=== PATIENT | female | born 1960 | race American Indian/Alaskan Native ===

== ENCOUNTER 2017-12-29 09:06 | Outpatient (CLI) | payer BC ==
--- NOTE | 2017-12-29 16:04 | Mammography Report ---
BILATERAL DIGITAL SCREENING MAMMOGRAM with CAD : 12/29/17 09:06:00 CLINICAL: Routine screening. COMPARISON:None available. FINDINGS: The breasts are heterogeneously dense, which may obscure small masses. No mass, architectural distortion or suspicious calcifications. IMPRESSION: No mammographic evidence of malignancy. BI-RADS CATEGORY: 2 -- Benign RECOMMENDATION: Routine mammographic screening in one year. COMMENT: Patient follow-up letters are generated by our [employer] application.
== END 2017-12-29 09:07 | disposition home or self-care (01) ==
LOC: SPVWC 09:06
PROVIDERS: ATTEND Internal Medicine
DX: Z12.31 Encounter for screening mammogram for malignant neoplasm of breast (principal)
CPT/HCPCS: 77067

== ENCOUNTER 2018-06-12 08:01 | Outpatient (CLI) | payer BC ==
[2018-06-12 08:24] LABS: Basophils % (Auto) 0.2 % (0.0-1.8); Eosinophils % (Auto) 0.3 % (0.0-4.3); Hematocrit 40.1 % (30.3-42.9); Hemoglobin 13.3 gm/dl (10.1-14.3); Lymphocytes % (Auto) 25.4 % (13.4-35.0); Mean Corpuscular HGB Conc 33 % (30-34); Mean Corpuscular Hemoglobin 28 pg (28-32); Mean Corpuscular Volume 86 fl (79-97); Monocytes # (Auto) 0.5 K/mm3 (0.0-0.8); Monocytes % (Auto) 6.5 % (0.0-7.3); Platelet Count 130 K/mm3 (140-440); Red Blood Count 4.68 M/mm3 (3.65-5.03); Red Cell Distribution Width 14.3 % (13.2-15.2)
[2018-06-12 08:42] LABS: Alanine Aminotransferase 8 units/L (7-56); BUN/Creatinine Ratio 22; Blood Urea Nitrogen 13 mg/dL (7-17); Calcium 9.2 mg/dL (8.4-10.2); Chol/HDL Ratio 2.65 %; HDL Cholesterol 66 mg/dL (40-59); Hemolysis Index 0; LDL Cholesterol,Direct 114 mg/dL (50-130)
[2018-06-12 08:49] LABS: Free T4 (Free Thyroxine) 1.29 ng/dL (0.76-1.46)
== END 2018-06-12 08:02 | disposition home or self-care (01) ==
LOC: LAB 08:01
PROVIDERS: ATTEND Internal Medicine
DX: I10 Essential (primary) hypertension (principal); M96.1 Postlaminectomy syndrome, not elsewhere classified; R53.83 Other fatigue; E55.9 Vitamin D deficiency, unspecified; Z79.899 Other long term (current) drug therapy
CPT/HCPCS: 36415; 80053; 80061; 82306; 84439; 84443; 85025

== ENCOUNTER 2019-01-21 08:13 | Outpatient (CLI) | payer BC ==
[2019-01-21 08:32] LABS: Hematocrit 39.5 % (30.3-42.9); Hemoglobin 13.2 gm/dl (10.1-14.3); Mean Corpuscular HGB Conc 34 % (30-34); Mean Corpuscular Volume 86 fl (79-97); Platelet Count 145 K/mm3 (140-440); Red Cell Distribution Width 14.7 % (13.2-15.2)
[2019-01-21 08:38] LABS: Bacteria,Urine 2+ /HPF (Negative); Bilirubin,Urine NEG (Negative); Blood,Urine NEG (Negative); Color,Urine Yellow (Yellow); Mucus,Urine 1+ /HPF; Protein,Urine <15 mg/dL mg/dL (Negative); Urobilinogen,Urine < 2.0 mg/dL (<2.0)
[2019-01-21 09:00] LABS: Alanine Aminotransferase 9 units/L (7-56); BUN/Creatinine Ratio 16; Blood Urea Nitrogen 11 mg/dL (7-17); Calcium 9.2 mg/dL (8.4-10.2); Hemolysis Index 3; LDL Cholesterol,Direct 125 mg/dL (50-130)
[2019-01-21 09:11] LABS: HDL Cholesterol 63 mg/dL (40-59)
[2019-01-21 09:53] LABS: Chol/HDL Ratio 2.85 %
== END 2019-01-21 08:14 | disposition home or self-care (01) ==
LOC: LAB 08:13
PROVIDERS: ATTEND Internal Medicine
DX: I10 Essential (primary) hypertension (principal); E78.5 Hyperlipidemia, unspecified; R53.83 Other fatigue; E55.9 Vitamin D deficiency, unspecified; R35.8 Other polyuria; Z79.899 Other long term (current) drug therapy
CPT/HCPCS: 36415; 80053; 80061; 81001; 82306; 84443; 85027

== ENCOUNTER 2019-08-12 09:01 | Outpatient (CLI) | payer BC ==
[2019-08-12 09:15] LABS: Hematocrit 39.5 % (30.3-42.9); Hemoglobin 13.2 gm/dl (10.1-14.3); Mean Corpuscular HGB Conc 33 % (30-34); Mean Corpuscular Volume 86 fl (79-97); Platelet Count 159 K/mm3 (140-440); Red Cell Distribution Width 14.3 % (13.2-15.2)
[2019-08-12 09:42] LABS: Alanine Aminotransferase 10 units/L (7-56); Albumin 3.9 g/dL (3.9-5); BUN/Creatinine Ratio 15; Blood Urea Nitrogen 12 mg/dL (7-17); Hemolysis Index 12
[2019-08-12 09:58] LABS: Erythrocyte Sedimentation Rate 32 mm/Hr (0-20)
--- NOTE | 2019-08-12 10:02 | XRay Report ---
RIGHT FOOT, 3 VIEWS INDICATION: L08.9 LOCAL INFECTION OF THE SKIN SUBCUTANEOUS TISSUE. COMPARISON: None. IMPRESSION: Mild nonspecific soft tissue edema or swelling is suspected. No evidence for soft tissue gas or radiopaque foreign body. The bony structures are intact. No fracture or bony destruction is appreciated. Mild osteoarthritic changes are noted at the first metatarsophalangeal joint. Moderate p lantar spur. Signer Name: Edu Solano Jr, MD Signed: 08/12/2019 9:58 AM Workstation Name: [id number]
== END 2019-08-12 09:02 | disposition home or self-care (01) ==
LOC: XRAY 09:01
PROVIDERS: ATTEND Podiatrist Foot & Ankle Surgery
DX: M19.072 Primary osteoarthritis, left ankle and foot (principal); L08.9 Local infection of the skin and subcutaneous tissue, unspecified; M77.8 Other enthesopathies, not elsewhere classified
CPT/HCPCS: 36415; 80053; 84550; 85027; 85652

== ENCOUNTER 2019-11-05 09:10 | Outpatient (CLI) | payer BC ==
--- NOTE | 2019-11-05 10:13 | XRay Report ---
RIGHT FOOT 3 VIEWS INDICATION: L08.9 Local infection of the skin and subcutaneous tissue, unspec. COMPARISON: 08/12/2019 FINDINGS: Bandaging material limits anatomic detail. Accounting for this, no acute skeletal abnormality is seen . There appears to be mild plantar soft tissue swelling. No foreign bodies or soft tissue gas. Degene rative and enthesopathic changes are again noted. IMPRESSION: 1. No limitation related to overlying bandaging, no acute skeletal abnormality. No soft tissue gas is appreciated. No foreign bodies. Signer Name: Klaus De Jesus MD Signed: 11/05/2019 10:08 AM Workstation Name: [id number]
== END 2019-11-05 09:11 | disposition home or self-care (01) ==
LOC: XRAY 09:10
PROVIDERS: ATTEND Podiatrist Foot & Ankle Surgery
DX: M19.071 Primary osteoarthritis, right ankle and foot (principal); M76.891 Other specified enthesopathies of right lower limb, excluding foot; L08.9 Local infection of the skin and subcutaneous tissue, unspecified

== ENCOUNTER 2019-11-11 09:42 | Outpatient (CLI) | payer BC ==
--- NOTE | 2019-11-11 11:32 | Magnetic Resonance Report ---
MR LOWER EXTREMITY JOINT WITHOUT CONTRAST, RIGHT HISTORY: Infection right fifth metatarsal head in right foot TECHNIQUE: Multisequence, multiplanar MRI without contrast through the distal right foot. COMPARISON: Right foot films dated 11/05/2019 FINDINGS: There is mild nonspecific subcutaneous edema on the dorsum of the foot distally which could represent a mild cellulitis. There is no evidence for abscess or soft tissue gas. The bone marrow signal throu ghout the visualized right foot is within normal limits. No bone marrow edema, T1 changes or periosti tis is identified to suggest acute osteomyelitis. No erosive joint pathology is identified. Mild osteoarthritic changes are noted in the midfoot and fi rst metatarsophalangeal joint. The visualized musculotendinous structures are unremarkable. Most of the hindfoot is not included. IMPRESSION: No evidence for osteomyelitis. Mild nonspecific subcutaneous edema is identified which could represen t a cellulitis. No abscess. Signer Name: Edu Solano Jr, MD Signed: 11/11/2019 11:28 AM Workstation Name: [id number]
== END 2019-11-11 09:43 | disposition home or self-care (01) ==
LOC: SPVIMAG 09:42
PROVIDERS: ATTEND Podiatrist Foot & Ankle Surgery
DX: M19.071 Primary osteoarthritis, right ankle and foot (principal); L08.9 Local infection of the skin and subcutaneous tissue, unspecified
CPT/HCPCS: 73721

== ENCOUNTER 2020-07-08 08:30 | Outpatient (CLI) | payer BC ==
--- NOTE | 2020-07-08 10:22 | Mammography Report ---
BILATERAL DIGITAL SCREENING MAMMOGRAM WITH CAD HISTORY: SCREENING MAMMOGRAM TECHNIQUE: Routine digital mammographic imaging performed. This examination was interpreted with felicia mcdermott benefit of Computer-aided Detection analysis. COMPARISON: 03/08/2019, 12/29/2017. FINDINGS: Breast Density: scattered fibroglandular appearance of the breast tissue. Digital CC and MLO views demonstrate no mammographic evidence of malignancy. Stable benign-appearing right upper outer breast coarse calcifications. IMPRESSION: No mammographic evidence of malignancy. If the clinical examination remains stable, recommend bilate ral mammogram in approximately one year. BIRADS 2: Benign Finding(s). FURTHER INFORMATION: According to the [employer], yearly mammograms are recommend ed starting at age 40 and continuing as long as a woman is in good health. Clinical Breast Exams shou ld be part of a periodic health exam-about every 3 years for women in their 20s and 30s and every yea r for women 40 and over. Breast self exam is an option for women starting in their 20s. Any breast ch gustavo noted on a breast self exam should be reported promptly to the patient's healthcare provider. Br east MRI is recommended for women with an approximately 20-25% or greater lifetime risk of breast can cer, including women with a strong family history of breast or ovarian cancer and women who have been treated for Hodgkin's disease. A negative Mammography report should not discourage follow up or biopsy of a clinically significant f inding and/or abnormality. Dense breast tissue may obscure small neoplasms. The patient will be entered into a reminder system with a target due date for the next screening mamm ogram. Signer Name: Matthew Darby MD Signed: 07/08/2020 10:18 AM Workstation Name: [id number]
== END 2020-07-08 08:31 | disposition home or self-care (01) ==
LOC: SPVWC 08:30
PROVIDERS: ATTEND Internal Medicine
DX: Z12.31 Encounter for screening mammogram for malignant neoplasm of breast (principal)
CPT/HCPCS: 77067

== ENCOUNTER 2020-09-04 08:35 | Outpatient (CLI) | payer BC ==
--- NOTE | 2020-09-04 09:24 | XRay Report ---
RIGHT FOOT 3 VIEW(S) INDICATION / CLINICAL INFORMATION: INFECTION RT METATARSAL COMPARISON: 11/05/2019 FINDINGS: BONES / JOINT(S): No acute fracture or aggressive cortical destruction. There is diffuse osteopenia. Mild scattered osteoarthritis of the first MTP and scattered IP joints. Lisfranc alignment is preserv ed. SOFT TISSUES: Reported soft tissue wound involving the lateral right forefoot is not well seen by rad iograph. There is no soft tissue gas or radiopaque foreign body. ADDITIONAL FINDINGS: None. IMPRESSION: No acute osseous findings. No radiographic evidence of osteomyelitis. Signer Name: Ross Odom MD Signed: 09/04/2020 9:19 AM Workstation Name: [id number]
[2020-09-04 09:42] LABS: Basophils % (Auto) 0.3 % (0.0-1.8); Eosinophils % (Auto) 0.5 % (0.0-4.3); Hematocrit 37.1 % (30.3-42.9); Hemoglobin 12.4 gm/dl (10.1-14.3); Lymphocytes % (Auto) 28.7 % (13.4-35.0); Mean Corpuscular HGB Conc 34 % (30-34); Mean Corpuscular Volume 87 fl (79-97); Monocytes # (Auto) 0.4 K/mm3 (0.0-0.8); Monocytes % (Auto) 6.2 % (0.0-7.3); Platelet Count 153 K/mm3 (140-440); Red Blood Count 4.26 M/mm3 (3.65-5.03); Red Cell Distribution Width 14.1 % (13.2-15.2)
[2020-09-04 10:15] LABS: Erythrocyte Sedimentation Rate 42 mm/Hr (0-20)
[2020-09-04 10:16] LABS: Alanine Aminotransferase 9 units/L (7-56); Albumin 3.9 g/dL (3.9-5); BUN/Creatinine Ratio 17; Blood Urea Nitrogen 12 mg/dL (7-17); Calcium 9.1 mg/dL (8.4-10.2); Chol/HDL Ratio 3.15 %; HDL Cholesterol 57 mg/dL (40-59); Hemolysis Index 1; LDL Cholesterol,Direct 120 mg/dL (50-130); Uric Acid 6.1 mg/dL (3.5-7.6)
[2020-09-07 13:20] LABS: Vitamin D, 25-OH, D2 <4 ng/mL
== END 2020-09-04 08:36 | disposition home or self-care (01) ==
LOC: LAB 08:35
PROVIDERS: ATTEND Internal Medicine
DX: M19.071 Primary osteoarthritis, right ankle and foot (principal); L08.9 Local infection of the skin and subcutaneous tissue, unspecified; I10 Essential (primary) hypertension; E78.5 Hyperlipidemia, unspecified; E07.9 Disorder of thyroid, unspecified; E55.9 Vitamin D deficiency, unspecified; R53.83 Other fatigue; Z79.899 Other long term (current) drug therapy
CPT/HCPCS: 36415; 80053; 80061; 82306; 84443; 84550; 85025; 85652

== ENCOUNTER 2020-11-27 09:33 | Outpatient (CLI) | payer BC ==
--- NOTE | 2020-11-27 13:03 | Magnetic Resonance Report ---
MR LE joint RT wo con INDICATION / CLINICAL INFORMATION: MAIN. TECHNIQUE: Multiplanar, multisequence MR images were obtained. COMPARISON: None available. FINDINGS: Mild edema is seen in the fourth toe without corresponding low T1 signal. No other abnormal marrow si gnal is seen. No large fluid collection is identified. No soft tissue mass is present. Visualized ten dons are normal. IMPRESSION: Mild edema in the fourth toe on T2-weighted images without corresponding low T1 signal. This is a non specific finding. Presence of osteomyelitis is doubtful on this exam Signer Name: Mickey Chance MD FACThai Signed: 11/27/2020 12:59 PM Workstation Name: [id number]
== END 2020-11-27 09:34 | disposition home or self-care (01) ==
LOC: MRI 09:33
PROVIDERS: ATTEND Podiatrist Foot & Ankle Surgery
DX: L08.9 Local infection of the skin and subcutaneous tissue, unspecified (principal)
CPT/HCPCS: 73721

== ENCOUNTER 2020-12-23 12:41 | Outpatient (CLI) | payer BC ==
[2020-12-23 13:02] LABS: Hematocrit 38.1 % (30.3-42.9); Hemoglobin 13.2 gm/dl (10.1-14.3); Mean Corpuscular HGB Conc 35 % (30-34); Mean Corpuscular Volume 86 fl (79-97); Platelet Count 140 K/mm3 (140-440); Red Blood Count 4.45 M/mm3 (3.65-5.03); Red Cell Distribution Width 15.6 % (13.2-15.2)
[2020-12-23 13:26] LABS: Alanine Aminotransferase 13 units/L (7-56); Albumin 4.1 g/dL (3.9-5); BUN/Creatinine Ratio 21; Blood Urea Nitrogen 15 mg/dL (7-17); Calcium 9.2 mg/dL (8.4-10.2); Chol/HDL Ratio 2.95 %; HDL Cholesterol 68 mg/dL (40-59); Hemolysis Index 5; LDL Cholesterol,Direct 139 mg/dL (50-130)
== END 2020-12-23 12:42 | disposition home or self-care (01) ==
LOC: LAB 12:41
PROVIDERS: ATTEND Internal Medicine
DX: Z00.00 Encounter for general adult medical examination without abnormal findings (principal)
CPT/HCPCS: 36415; 80053; 80061; 83036; 84443; 85027

== ENCOUNTER 2021-01-19 05:58 | Day surgery (SDC) | payer BC ==
[2021-01-19] MEDS ORDERED: ceFAZolin/Water 2 GM/20 ML 2 GM/20 ML SYRINGE IV ONE (06:34)
[2021-01-19] MEDS ORDERED: LACTATED RINGERS 1,000 ML ONE (06:35)
[2021-01-19] MEDS ORDERED: dexAMETHasone 4 MG/ML VIAL ONE (06:44)
[2021-01-19] MEDS ORDERED: BACITRACIN ZINC OINT 28.4 GM TP ONE (06:44)
[2021-01-19] MEDS ORDERED: LIDOCAINE 1%/EPINEPHRINE 1:100,000 VIAL (20 ML) INFILTRATI ONE (06:44)
[2021-01-19] MEDS ORDERED: BUPIVACAINE/PF (0.25%) 2.5 MG/ML 30 ML VIAL INFILTRATI ONE (06:44)
--- NOTE | 2021-01-19 06:44 | Anesthesia Consultation ---
Anesthesia Consult and Med Hx Date of service: 01/19/21 - Airway Anesthetic Teeth Evaluation: Good ROM Head & Neck: Adequate Mental/Hyoid Distance: Adequate Mallampati Class: Class II Intubation Access Assessment: Good - Pulmonary Exam CTA: Yes - Cardiac Exam Cardiac Exam: RRR - Pre-Operative Health Status ASA Pre-Surgery Classification: ASA2 Proposed Anesthetic Plan: MAC - Pulmonary Hx Smoking: Yes (Former) - Cardiovascular System Hx Hypertension: Yes - Central Nervous System Hx Psychiatric Problems: No - Hematic Hx Sickle Cell Disease: Yes (Trait only) - Other Systems Hx Alcohol Use: Yes (Occas) Hx Cancer: No
[2021-01-19] MEDS ORDERED: LACTATED RINGERS 1,000 ML IV SCH (06:45)
[2021-01-19] MEDS ORDERED: LIDOCAINE-MPF (1%) 10 MG/1 ML VIAL 5 ML ONE (06:45)
--- NOTE | 2021-01-19 06:45 | Anesthesia Day of Surgery ---
Anesthesia Day of Surgery - Day of Surgery Patient Examined: Yes Patient H&P Reviewed: Yes Patient is NPO: Yes Beta Blockers: Yes
[2021-01-19] MEDS ORDERED: ceFAZolin/STERILE WATER 2 GM/20 ML SYRINGE IV NR (07:00)
[2021-01-19] MEDS ORDERED: MIDAZOLAM 2 MG/2 ML INJ IV NR (07:00)
[2021-01-19] MEDS ORDERED: GENTAMICIN 40 MG/ML VIAL 2 ML ONE (07:02)
[2021-01-19] MEDS ORDERED: propofoL 200 MG/20 ML VIAL IV ONE (07:12)
[2021-01-19] MEDS ORDERED: ONDANSETRON 4 MG/2 ML INJ IV PRN (07:19)
[2021-01-19] MEDS ORDERED: HYDROmorphone 1 MG/1 ML INJ IV PRN ×2 (07:19)
[2021-01-19] MEDS ORDERED: fentaNYL 100 MCG/2 ML INJ ONE (07:33)
[2021-01-19] MEDS ORDERED: MIDAZOLAM 2 MG/2 ML INJ ONE ×2 (07:36→08:01)
[2021-01-19] MEDS ORDERED: ONDANSETRON 4 MG/2 ML INJ ONE (08:03)
[2021-01-19] MEDS ORDERED: KETOROLAC 30 MG/1 ML INJ ONE (08:03)
[2021-01-19] MEDS ORDERED: dexAMETHasone 20 MG/5 ML VIAL ONE (08:03)
[2021-01-19 09:10] VITALS: BP 149/80
--- NOTE | 2021-01-19 19:06 | Post Anesthesia Evaluation ---
- Post Anesthesia Evaluation Patient Participated: Yes Airway Patent: Yes Stable Respiratory Function: Yes Nausea/Vomiting: No Temp > 96.8F: Yes Pain Manageable: Yes Adequeate Hydration: Yes Anesthesia Complications: No Block Receding Appropriately: Not Applicable Patient on Ventilator: No
--- NOTE | 2021-01-20 09:01 | Operative Report ---
PREOPERATIVE DIAGNOSIS: Recurring chronic infection with abscess, right foot. POSTOPERATIVE DIAGNOSIS: Recurring chronic infection with abscess, right foot. SURGICAL PROCEDURE: Aggressive incision and drainage with exploration, right foot. ANESTHESIA: Local with monitored anesthesia care. TOURNIQUET: None. ESTIMATED BLOOD LOSS: Less than 20 mL. PROCEDURE IN DETAIL: The patient was brought into the operating room, placed on the operating table in supine position. Following intravenous sedation, the patient was given 2 grams of Ancef prophylactically. At this time, after adequate IV sedation, the foot was cleansed with alcohol and 10 mL of 1:1 mixture of 1% lidocaine plain plus 0.5% Marcaine plain was infiltrated into the right foot via reverse Galarza block. At this time, the foot was then scrubbed, prepped and draped in the usual aseptic manner and the patient was placed in a slight Trendelenburg position and the procedure was performed. At this time, with the use of a 10 blade, a 6 cm incision was placed at the lateral aspect of the bifurcation between the dorsal and plantar skin due to a recurrent ulceration at the fifth metatarsal head. The initial incision was carried deep down to the tissue layers with adequate bleeding noted. There was noted to be discolored tissue, grayish in nature, in the fat pad, which was removed without incident. Let it be noted, further exploration medially actually identified additional nonviable tissue which was passed from the operative field, to be sent to the laboratory for both ID and cultures consisting of aerobic, anaerobic and fungal cultures. At this time, deep cultures were performed. The area was pulse lavaged with saline and gentamicin mix. The area was explored for any additional abnormal tissue and none was identified. The area was closed deep with 3-0 Vicryl followed by 4-0 Vicryl and horizontal stitches were performed with 3-0 and 4-0 Prolene. The area was dressed with bacitracin ointment, Adaptic and sterile compression dressing. The patient tolerated the procedure and anesthesia well, will be transferred to recovery and discharged home with both written and oral postoperative instructions. The patient will be weightbearing to tolerance. JOB# [id number] TLD/NTS
== END 2021-01-19 05:59 | disposition home or self-care (01) ==
LOC: OR 05:58
PROVIDERS: ATTEND Podiatrist Foot & Ankle Surgery
DX: L02.611 Cutaneous abscess of right foot (principal); I10 Essential (primary) hypertension; Z87.891 Personal history of nicotine dependence; Z79.899 Other long term (current) drug therapy; Z98.890 Other specified postprocedural states; Z20.822 Contact with and (suspected) exposure to COVID-19
CPT/HCPCS: 11043; 87075; 87102; 87116; 88304; J0690; J1100; J1885; J2250; J2405; J2704; J3010; J7120; U0003; J1580

== ENCOUNTER 2021-07-23 09:54 | Outpatient (CLI) | payer BC ==
--- NOTE | 2021-07-26 11:13 | Mammography Report ---
DIGITAL SCREENING MAMMOGRAM WITH CAD, 07/26/2021 CLINICAL INFORMATION / INDICATION: Routine screening TECHNIQUE: Digital bilateral 2D mammography was obtained in the craniocaudal and mediolateral obliqu e projections. This examination was interpreted with the benefit of Computer-Aided Detection analysis . COMPARISON: 07/08/2020 FINDINGS: Breast Density: There are scattered areas of fibroglandular density. No dominant mass, suspicious calcifications, or architectural distortion in either breast. Right biopsy changes are again seen. IMPRESSION: No mammographic evidence of malignancy. Follow up recommendation: Routine yearly BI-RADS Category 2: Benign. A "normal" or negative report should not discourage follow up or biopsy of a clinically significant f inding. A written summary of these findings will be mailed to the patient. The patient will be entered into a mammography reporting system which will generate a reminder letter for the patient's next appointmen t at the appropriate interval. The [employer] recommends yearly mammograms starting at age 40 and continuing as l tanmay as a woman is in good health. Breast MRI is recommended for women with an approximate 20-25% or greater lifetime risk of breast cancer, including women with a strong family history of breast or ova coy cancer or who have been treated for Hodgkin's disease. Signer Name: Daniel Shah MD Signed: 07/26/2021 11:08 AM Workstation Name: [id number]
== END 2021-07-23 09:55 | disposition home or self-care (01) ==
LOC: SPVWC 09:54
PROVIDERS: ATTEND Internal Medicine
DX: Z12.31 Encounter for screening mammogram for malignant neoplasm of breast (principal)
CPT/HCPCS: 77067

== ENCOUNTER 2022-03-14 12:29 | Outpatient (CLI) | payer BC | END 2022-03-14 12:30 | disposition home or self-care (01) | LOC: LAB 12:29 | PROVIDERS: ATTEND Obstetrics & Gynecology | DX: N95.0 Postmenopausal bleeding (principal) | CPT/HCPCS: 88305 ==